=== PATIENT | male | born 1940 | race Caucasian/White ===

== ENCOUNTER 2021-10-23 17:33 | Emergency (ER) | payer OTHER, MEDICAID ==
--- NOTE | 2021-10-23 17:47 | NUR ---
PT INFORMED HE HAS DECIDED TO LEAVE WITHOUT BEING SEEN
--- NOTE | 2021-10-23 17:48 | NUR ---
PATIENT LEFT WITHOUT BEING SEEN BY DR. STREETER. NO FURTHER CARE PROVIDED FOR PATIENT.
== END 2021-10-23 18:46 | disposition left against medical advice (07) ==
LOC: MED 17:33
DX: R50.9 Fever, unspecified (principal); M79.10 Myalgia, unspecified site; Z53.21 Procedure and treatment not carried out due to patient leaving prior to being seen by health care provider